=== PATIENT | male | born 1990 | race Caucasian/White ===

== ENCOUNTER 2017-01-05 12:30 | Emergency (ER) | payer MEDICAID ==
[~2017-01-05] VITALS: Ht 182.9 cm; Wt 81.6 kg
[2017-01-05 12:42] VITALS: BP 164/78
== END 2017-01-05 13:24 | disposition home or self-care (01) ==
LOC: ER 12:32
DX: L98.8 Other specified disorders of the skin and subcutaneous tissue (principal)
CPT/HCPCS: 99283; A4606; Z7610

== ENCOUNTER 2017-09-18 11:09 | Emergency (ER) | payer MEDICAID, OTHER ==
[~2017-09-18] VITALS: Ht 182.9 cm; Wt 83.9 kg
--- NOTE | 2017-09-18 11:15 | NUR ---
CASSIUS FROM HOME CC OF WORSENING HEADACHE X 3 WEEKS, NO TRAUMA , AOX4 , DENIES SOB , VERTIGO , NAUSEA AND VOMITING , VSS , WILL CONTINUE TO MONITOR
[2017-09-18] MEDS ORDERED: diphenhydrAMINE HCL 50 MG/ML VIAL ONE (12:10)
[2017-09-18] MEDS ORDERED: KETOROLAC TROMETHAMINE INJ 30 MG/ML VIAL ONE (12:10)
[2017-09-18] MEDS ORDERED: DEXAMETHASONE SOD PHOSPHATE 10 MG/ML VIAL ONE (12:10)
--- NOTE | 2017-09-18 12:10 | NUR ---
IV ACCESS STARTED. MEDICATED ORDERED. VSS. WILL MONITOR.
[2017-09-18] MEDS ORDERED: diphenhydrAMINE HCL 50 MG/ML VIAL IV ONE (12:30)
[2017-09-18] MEDS ORDERED: IV NS 0.9% 1,000 ML BAG IV ONE (12:30)
[2017-09-18] MEDS ORDERED: KETOROLAC TROMETHAMINE INJ 30 MG/ML VIAL IV ONE (12:30)
[2017-09-18] MEDS ORDERED: DEXAMETHASONE SOD PHOSPHATE 10 MG/ML VIAL IV ONE (12:30)
[2017-09-18 13:54] VITALS: BP 135/55
--- NOTE | 2017-09-18 13:54 | NUR ---
Patient discharged to home in stable condition. Written and verbal after care instructions given. Patient verbalizes understanding of instruction.
== END 2017-09-18 13:54 | disposition home or self-care (01) ==
LOC: ER 11:09
DX: G43.809 Other migraine, not intractable, without status migrainosus (principal)
CPT/HCPCS: 96374; 96375; 99284; A4606; J1100; J1200; J1885; J7030; Z7610